=== PATIENT | female | born 1975 | race Caucasian/White ===

== ENCOUNTER → 2017-07-06 | Outpatient (CLI) | payer BC ==
[~2017-07-06] MED LIST: BUPR-83 PO; GABA-113 PO; IBUP-1459 PO; TRAM-10 PO
--- NOTE | 2017-07-06 10:18 | DIAGNOSTIC IMAGING REPORT ---
L-SPINE MIN 4 VIEWS ROUTINE HISTORY: Pain LUMBAGO, SACROILITIS COMPARISON: None. FINDINGS: There is no fracture. No subluxation. Disc spaces are preserved. IMPRESSION: No fracture or subluxation within the lumbar spine. Minimal reactive ileus. The above report was generated using voice recognition software. It may contain grammatical, syntax or spelling errors. Electronically signed by: Trent Ken M.D. 07/06/2017 10:17 AM Dictated Date/Time: 07/06/2017 10:09 AM
--- NOTE | 2017-07-06 10:18 | DIAGNOSTIC IMAGING REPORT ---
SI JOINTS 3 OR MORE VIEWS CLINICAL HISTORY: LUMBAGO, SACROILITIS COMPARISON STUDY: None. FINDINGS: No fractures identified within the sacrum. No erosions identified within the bilateral sacroiliac joints. The right sacroiliac joint is within normal limits. The left sacroiliac joint appears to be partially fused inferiorly. IMPRESSION: 1. Partial fusion of the left sacroiliac joint. 2. Normal right sacroiliac joint. Electronically signed by: Torey Ivey M.D. 07/06/2017 10:17 AM Dictated Date/Time: 07/06/2017 10:16 AM
== END | disposition home or self-care (01) ==
LOC: C.RADBC 09:47
PROVIDERS: ATTEND Physician Assistant
DX: M54.5 Low back pain (principal); M46.1 Sacroiliitis, not elsewhere classified